=== PATIENT | male | born 1985 | race Two or more races ===

== ENCOUNTER 2016-04-18 12:49 | Emergency (ER) | payer OTHER ==
[2016-04-18 12:54] VITALS: BP 145/86; PULSE 88; TEMP 97.7; BMI 29.5
--- NOTE | 2016-04-18 14:31 | PDOC ---
History of Present Illness - General Chief Complaint: Eye Problem Stated Complaint: RT EYE PAIN/ SWOLLEN Time Seen by Provider: 04/18/16 12:58 History Source: Patient Exam Limitations: No Limitations - History of Present Illness Initial Comments: 04/18/16 14:34 30 yr male with right eye irritation, photophobia for 4 days. Pt states he was cleaning a grilla t work when a piece of metal from the brush got into his right eye. Pt went to another ER and "something" was removed from the eye and pt was placed on cipro eye drops. Pt continues to have photophobia, feeling of FB sensation. no vision change, pt does not wear contacts or glasses. Severity: mild Past History - Past Medical History Allergies/Adverse Reactions: Allergies Allergy/AdvReac Type Severity Reaction Status Date / Time No Known Allergies Allergy Verified 04/18/16 12:54 Home Medications: Ambulatory Orders Cyclobenzaprine HCl [Flexeril -] 10 mg PO TID #9 tablet 11/27/15 Ibuprofen [Motrin -] 800 mg PO Q6H #30 tablet 11/27/15 Oxycodone HCl/Acetaminophen [Percocet 5-325 mg Tablet] 1 tab PO Q4H #15 tablet MDD 4 11/27/15 Cyclopentolate 1% Eye Drops [Cyclogyl 1% Eye Drops -] 1 drop OD BID #1 bottle Asthma: Yes Hypercholesterolemia: Yes - Surgical History Other Surgical History: 04/18/16 14:42 none - Psycho/Social/Smoking Cessation Hx Anxiety: No Suicidal Ideation: No Smoking History: Current every day smoker Number of Cigarettes Smoked Daily: 4 Information on smoking cessation initiated: No Hx Alcohol Use: Yes (SOCIAL) Drug/Substance Use Hx: No Substance Use Type: None Review of Systems - Review of Systems Able to Perform ROS?: Yes Is the patient limited Estonian proficient: No Constitutional: No: Symptoms Reported HEENTM: Yes: See HPI, Tearing Respiratory: No: See HPI Cardiac (ROS): No: See HPI *Physical Exam - Vital Signs Last Vital Signs Temp Pulse Resp BP Pulse Ox 97.7 F 88 20 145/86 98 04/18/16 12:50 04/18/16 12:50 04/18/16 12:50 04/18/16 12:50 04/18/16 12:50 - Physical Exam General Appearance: Yes: Nourished, Appropriately Dressed HEENT: positive: EOMI, MARQUITA, Other (right eye ) Respiratory/Chest: positive: Lungs Clear, Normal Breath Sounds Cardiovascular: positive: Regular Rhythm, Regular Rate Musculoskeletal: positive: Normal Inspection Extremity: positive: Normal Capillary Refill, Normal Inspection, Normal Range of Motion Integumentary: positive: Normal Color, Dry, Warm Neurologic: positive: Fully Oriented, Alert, Normal Mood/Affect, Normal Response , Motor Strength 5/5 Procedures - Eye Procedure Alcaine Drops Administered: Yes (2) Eye Irrigated w/ Saline(Daniel Lens): Yes (100cc) Antibiotic Oinment/Drps Admin: right eye (erythromycin) Progress: 04/18/16 14:58 positive rust ring right cornea, no fb seen ED Treatment Course - Consult/PCP Time Called: 14:30 Case discussed with consulting physician: Lila Hurtado Consult Reason/Comments: case discussed with optho Dr.Prevor Neville Medical Decision Making - Medical Decision Making 04/18/16 14:45 cc: right eye tearing, photophobia , sensitive case discussed with optho health management consultant Dr.Prevor Neville will continue cipro, add erythromycin ointment, add cyclogel BID and see her in [facility] office wednesday. will irrigate with 100cc normal saline 04/18/16 14:58 discussed with patient the plan of care all questions asked and answered before discharge, understands the plan as well. *DC/Admit/Observation/Transfer Diagnosis at time of Disposition: Cornea abrasion Qualifiers: Encounter type: initial encounter Laterality: right Qualified Code(s): S05.01XA - Injury of conjunctiva and corneal abrasion without foreign body, right eye, initial encounter Corneal rust ring Qualifiers: Laterality: right Qualified Code(s): H18.891 - Other specified disorders of cornea, right eye - Discharge Dispostion Disposition: HOME Condition at time of disposition: Good - Prescriptions Prescriptions: Cyclopentolate 1% Eye Drops [Cyclogyl 1% Eye Drops -] 1 drop OD BID #1 bottle - Referrals Referrals: Lila Hurtado MD [Staff Physician] - - Patient Instructions Additional Instructions: apply the cyclogel eye drops twice a day , this will help with pain but it will blur vision and dialate pupils so do not read or watch tv or drive continue the cipro eye drops you already have add using erythromycin ointment 4x day to lower lid follow with Dr.Prevor Neville on Wednesday morning in the [facility] office at [address] [place] [address] phone number is [phone] I would call in the morning at 830 or 9am and tell them she is expecting to see you in the morning
[2016-04-18] MEDS ORDERED: ERYTHROMYCIN 0.5% OPHTHALMIC OINTMENT 3.5 GM TUBE ONE (14:51)
[2016-04-18] MEDS ORDERED: ERYTHROMYCIN 0.5% OPHTHALMIC OINTMENT 3.5 GM TUBE OD ONE (14:52)
== END 2016-04-18 15:04 | disposition home or self-care (01) ==
LOC: JER 12:49 → JERFT 12:49
DX: S05.01XA Injury of conjunctiva and corneal abrasion without foreign body, right eye, initial encounter (principal); W22.8XXA Striking against or struck by other objects, initial encounter; Y93.G1 Activity, food preparation and clean up; Y92.511 Restaurant or cafe as the place of occurrence of the external cause; Y99.0 Civilian activity done for income or pay
CPT/HCPCS: 99281-25

== ENCOUNTER 2016-07-27 00:01 | Emergency (ER) | payer SELFPAY ==
[2016-07-27 00:18] VITALS: BP 126/95; PULSE 100; TEMP 98.1; BMI 29.5
[2016-07-27] MEDS ORDERED: diphenhydrAMINE HCL 25 MG CAPSULE (FP) PO ONE ×2 (01:13→01:22)
--- NOTE | 2016-07-27 01:13 | PDOC ---
History of Present Illness - General Chief Complaint: Allergic Reaction Stated Complaint: BITE/ALLERGIC REACTION Time Seen by Provider: 07/27/16 00:26 History Source: Patient Exam Limitations: No Limitations - History of Present Illness Initial Comments: 07/27/16 01:08 Patient is a 30-year-old male with no past medical history complaining of a rash to his left forearm and right arm. States he got bitten by mosquitoes and he is allergies to mosquito bites. Now has burning and itching to the area. . PMD: Dr. Lazaro Past medical history: Negative Past social history; negative past family history: Noncontributory ALLERGY: NKDA GENERAL/CONSTITUTIONAL: [No fever or chills. No weakness. No weight change.] HEAD, EYES, EARS, NOSE AND THROAT: [No change in vision. No ear pain or discharge. No sore throat.] CARDIOVASCULAR: [No chest pain or shortness of breath.] RESPIRATORY: [No cough, wheezing, or hemoptysis.] GASTROINTESTINAL: [No nausea, vomiting, diarrhea or constipation. No rectal bleeding.] GENITOURINARY: [No dysuria, frequency, or change in urination.] MUSCULOSKELETAL: [No joint or muscle swelling or pain. No neck or back pain.] SKIN AND BREASTS: (+) Wednesday who will hold 1 Physical 1 rash, (-) easy bruising.] NEUROLOGIC: [No headache, vertigo, loss of consciousness, or loss of sensation.] PSYCHIATRIC: [No depression or anxiety.] ENDOCRINE: [No increased thirst. No abnormal weight change.] HEMATOLOGIC/LYMPHATIC: [No anemia, easy bleeding, or history of blood clots.] ALLERGIC/IMMUNOLOGIC: [No hives or skin allergy. No latex allergy.] GENERAL: [The patient is awake, alert, and fully oriented, in no acute distress. ] HEAD: [Normal with no signs of trauma.] EYES: [Pupils equal, round and reactive to light, extraocular movements intact, sclera anicteric, conjunctiva clear.] ENT: [Ears normal, nares patent, oropharynx clear without exudates. Moist mucous membranes.] NECK: [Normal range of motion, supple without lymphadenopathy, JVD, or masses.] LUNGS: [Breath sounds equal, clear to auscultation bilaterally. No wheezes, and no crackles.] HEART: [Regular rate and rhythm, normal S1 and S2 without murmur, rub.] ABDOMEN: [Soft, nontender, normoactive bowel sounds. No guarding, no rebound. No masses.] EXTREMITIES: [Normal range of motion, no edema. No clubbing or cyanosis. No cords, erythema, or tenderness.] NEUROLOGICAL: [Cranial nerves II through XII grossly intact. Normal speech, normal gait.] PSYCH: [Normal mood, normal affect.] SKIN: [(+) well cirucmscribed area of erythema, non tender, normal turgor, Past History - Past Medical History Allergies/Adverse Reactions: Allergies Allergy/AdvReac Type Severity Reaction Status Date / Time No Known Allergies Allergy Verified 07/27/16 00:16 Home Medications: Ambulatory Orders Cephalexin [Keflex] 500 mg PO TID #5 capsule 07/27/16 Asthma: Yes Hypercholesterolemia: Yes - Psycho/Social/Smoking Cessation Hx Anxiety: No Suicidal Ideation: No Smoking History: Smoker current status UNK Number of Cigarettes Smoked Daily: 4 Hx Alcohol Use: Yes (SOCIAL) Drug/Substance Use Hx: No Substance Use Type: Marijuana *Physical Exam - Vital Signs Last Vital Signs Temp Pulse Resp BP Pulse Ox 98.1 F 100 H 20 126/95 100 07/27/16 00:17 07/27/16 00:17 07/27/16 00:17 07/27/16 00:17 07/27/16 00:17 Medical Decision Making - Medical Decision Making 07/27/16 01:17 Patient is a 30-year-old male with no past medical history complaining of a rash to his left forearm and right arm consistent with insect bite. will give Benadryl 50mg po, r/o cellulitis will consider keflex Rx sent to pharmacy if the area worses I discussed the physical exam findings, ancillary test results and final diagnoses with the patient. I answered all of the patient's questions. The patient was satisfied with the care received and felt comfortable with the discharge plan and treatment plan. The Patient agrees to follow up with the primary care physician within 24-72 hours. *DC/Admit/Observation/Transfer Diagnosis at time of Disposition: Insect bite Qualifiers: Encounter type: initial encounter Qualified Code(s): W57.XXXA - Bitten or stung by nonvenomous insect and other nonvenomous arthropods, initial encounter - Discharge Dispostion Disposition: HOME - Prescriptions Prescriptions: Cephalexin [Keflex] 500 mg PO TID #5 capsule - Referrals Referrals: Ramiro Lazaro MD [Primary Care Provider] - - Patient Instructions Printed Discharge Instructions: DI for Insect Bites and Stings Additional Instructions: Your Discharge Instructions: You must call primary care physician within 24 hours to arrange follow-up. Return to the Emergency Department with any new, persistent or worsening symptoms, for fever, chills, SOB, dizziness or any other concerning changes that may occur. Return in 2 days for wound check.
== END 2016-07-27 01:26 | disposition home or self-care (01) ==
LOC: JER 00:01
DX: S50.862A Insect bite (nonvenomous) of left forearm, initial encounter (principal); S40.861A Insect bite (nonvenomous) of right upper arm, initial encounter; L08.9 Local infection of the skin and subcutaneous tissue, unspecified; W57.XXXA Bitten or stung by nonvenomous insect and other nonvenomous arthropods, initial encounter; Y93.89 Activity, other specified; Y92.89 Other specified places as the place of occurrence of the external cause; Y99.8 Other external cause status
CPT/HCPCS: 99281-25

== ENCOUNTER 2016-11-22 10:23 | Emergency (ER) | payer SELFPAY ==
[2016-11-22 10:30] VITALS: BP 129/85; PULSE 91; TEMP 98.3; BMI 29.2
--- NOTE | 2016-11-22 10:55 | PDOC ---
History of Present Illness - General History Source: Patient Exam Limitations: No Limitations - History of Present Illness Initial Comments: 11/22/16 12:15 The patient is a 31 year old male with past medical history of asthma who presents to the ED with complaints of fever, chills and diffuse abdominal pain that began 4 days ago. The patient states that his symptoms are accompanied with nausea, mustard colored diarrhea and dark emesis. He states that he has been unable to hold down any food or fluids. He denies any sick contacts, cough , SOB, chest pain, urinary symptoms. PCP: Ramiro Lazaro <Alma Rosa Kumar - Last Filed: 11/22/16 13:14> <Faustino Goodson - Last Filed: 11/22/16 14:18> - General Chief Complaint: Pain, Acute Stated Complaint: NAUSEA/VOMITING Time Seen by Provider: 11/22/16 10:55 Past History <Alma Rosa Kumar - Last Filed: 11/22/16 13:14> - Past Medical History Asthma: Yes Hypercholesterolemia: Yes - Psycho/Social/Smoking Cessation Hx Anxiety: No Suicidal Ideation: No Smoking History: Smoker current status UNK Have you smoked in the past 12 months: Yes Number of Cigarettes Smoked Daily: 4 Information on smoking cessation initiated: Yes Hx Alcohol Use: No Drug/Substance Use Hx: No Substance Use Type: Marijuana <Faustino Goodson - Last Filed: 11/22/16 14:18> - Past Medical History Allergies/Adverse Reactions: Allergies Allergy/AdvReac Type Severity Reaction Status Date / Time No Known Allergies Allergy Verified 11/22/16 10:25 Home Medications: Ambulatory Orders Albuterol Sulfate Inhaler - [Ventolin Hfa Inhaler -] 1 - 2 inh PO QID 11/22/16 Review of Systems - Review of Systems Able to Perform ROS?: Yes Comments:: 11/22/16 12:16 GENERAL/CONSTITUTIONAL: Present: fever, chills, lack of appetite No weakness. HEAD, EYES, EARS, NOSE AND THROAT: No change in vision. No ear pain or discharge. No sore throat. CARDIOVASCULAR: No chest pain or shortness of breath. RESPIRATORY: No cough, wheezing, or hemoptysis. GASTROINTESTINAL: Present: nausea, vomiting, diarrhea, abdominal pain No constipation. GENITOURINARY: No dysuria, frequency, or change in urination. MUSCULOSKELETAL: No joint or muscle swelling or pain. No neck or back pain. SKIN: No rash NEUROLOGIC: No headache, vertigo, loss of consciousness, or change in strength/ sensation. ENDOCRINE: No increased thirst. No abnormal weight change. HEMATOLOGIC/LYMPHATIC: No anemia, easy bleeding, or history of blood clots. ALLERGIC/IMMUNOLOGIC: No hives or skin allergy. All Other Systems: Reviewed and Negative <Alma Rosa Kumar - Last Filed: 11/22/16 13:14> *Physical Exam - Vital Signs Last Vital Signs Temp Pulse Resp BP Pulse Ox 98.3 F 91 H 18 129/85 100 11/22/16 10:26 11/22/16 10:26 11/22/16 10:26 11/22/16 10:11/22/16 10:26 - Physical Exam Comments: 11/22/16 12:23 GENERAL: Awake, alert, and fully oriented, in no acute distress HEAD: No signs of trauma EYES: PERRLA, EOMI, sclera anicteric, conjunctiva clear ENT: Auricles normal inspection, hearing grossly normal, nares patent, oropharynx clear without exudates.(+) Dry mucosa NECK: Normal ROM, supple, no lymphadenopathy, JVD, or masses LUNGS: Breath sounds equal, clear to auscultation bilaterally. No wheezes, and no crackles HEART: (+) tachycardic, normal S1 and S2, no murmurs, rubs or gallops ABDOMEN: Soft, nontender, normoactive bowel sounds. No guarding, no rebound. No masses EXTREMITIES: Normal range of motion, no edema. No clubbing or cyanosis. No cords, erythema, or tenderness NEUROLOGICAL: Cranial nerves II through XII grossly intact. Normal speech, normal gait SKIN: Warm, Dry, normal turgor, no rashes or lesions noted. <Alma Rosa Kumar - Last Filed: 11/22/16 13:14> - Vital Signs Last Vital Signs Temp Pulse Resp BP Pulse Ox 98.3 F 91 H 18 129/85 100 11/22/16 10:26 11/22/16 10:26 11/22/16 10:26 11/22/16 10:26 11/22/16 10:26 <Faustino Goodson - Last Filed: 11/22/16 14:18> ED Treatment Course - LABORATORY CBC & Chemistry Diagram: 11/22/16 12:00 11/22/16 12:00 - RADIOLOGY Radiograph Interpretation: 11/22/16 13:14 Abdominal/pelvic CT as reviewed by Dr. Puckett reports no acute pathology. <Alma Rosa Kumar - Last Filed: 11/22/16 13:14> - LABORATORY CBC & Chemistry Diagram: 11/22/16 12:00 11/22/16 12:00 <Faustino Goodson - Last Filed: 11/22/16 14:18> Medical Decision Making - Medical Decision Making 11/22/16 13:14 <Alma Rosa Kumar - Last Filed: 11/22/16 13:14> - Medical Decision Making 11/22/16 14:11 Patient wants his IV out and he wants to eat something heavy..... neither of which is a good idea. I told him he could stay and wait for the labs and have more fluids, he is declining and wants to go now..... he wants to sign out ama and he understands the risks. <Faustino Goodson - Last Filed: 11/22/16 14:18> *DC/Admit/Observation/Transfer - Attestations Scribe Attestion: 11/22/16 12:24 Documentation prepared by Alma Rosa Kumar, acting as medical accountant for Faustino Goodson DO. <StacyAlma Rosa - Last Filed: 11/22/16 13:14> - Discharge Dispostion Admit: No - Attestations Physician Attestion: 11/22/16 10:55 I, Dr. Faustino Goodson, attest that this document has been prepared under my direction and personally reviewed by me in its entirety. I further attest, that it accurately reflects all work, treatment, procedures and medical decision -making performed by me. <Faustino Goodson - Last Filed: 11/22/16 14:18> Diagnosis at time of Disposition: Viral gastroenteritis - Discharge Dispostion Disposition: AGAINST MEDICAL ADVICE Condition at time of disposition: Improved - Referrals Referrals: Ramiro Lazaro MD [Primary Care Provider] - - Patient Instructions Printed Discharge Instructions: DI for Dehydration -- Adult, DI for Viral Gastroenteritis -- Adult Additional Instructions: Blaise- I am sorry that you do not feel well and you have been sick the past four or five days. Since you are leaving against medical advice and you want to eat something heavy rather than stay on clear liquids for 24 hours....... I really can't help you any further. I will not be able to give you a note for work or a prescription. If you get worse, please return. I do actually hope you feel better soon. Best- Dr. Faustino Goodson
[2016-11-22] MEDS ORDERED: SODIUM CHLORIDE 3,000 ML IV STA (11:01)
[2016-11-22] MEDS ORDERED: morphine CARPU-JECT 2 MG/1 ML DISP.SYRIN IVPUSH ONE (11:01)
[2016-11-22] MEDS ORDERED: ONDANSETRON 4 MG/2 ML VIAL IVPUSH ONE (11:01)
[2016-11-22] MEDS ORDERED: morphine CARPU-JECT 2 MG/1 ML DISP.SYRIN ONE (11:52)
[2016-11-22] MEDS ORDERED: ONDANSETRON 4 MG/2 ML VIAL ONE (11:54)
[2016-11-22 12:10] LABS: MCH 30.9 pg (25.7-33.7); MCHC 34.1 g/dl (32.0-35.9); MEAN CELL VOLUME 90.6 fl (80-96); MEAN PLT VOLUME 8.8 fl (7.5-11.1); PLATELET COUNT 228 K/MM3 (134-434); RDW 12.9 % (11.9-15.9); WHITE BLOOD COUNT 4.9 K/mm3 (4.0-10.0)
[2016-11-22 12:22] LABS: INR 1.12 (0.82-1.09); PROTHROMBIN TIME (PATIENT) 12.3 SEC (9.98-11.88)
[2016-11-22 12:32] LABS: ALBUMIN 3.5 g/dl (3.4-5.0); ALK PHOS 60 U/L (45-117); ANION GAP 9 (8-16); BILIRUBIN,TOTAL 0.5 mg/dL (0.2-1.0); CALCIUM 9.1 mg/dL (8.5-10.1); CO2 27 mmol/L (21-32); GLUCOSE,RANDOM 98 mg/dL (74-106); SGOT/AST 31 U/L (15-37); SGPT/ALT 22 U/L (12-78); TOT PROT 7.1 g/dl (6.4-8.2)
[2016-11-22 12:42] LABS: PLATELET ESTIMATE ADEQUATE; REACTIVE LYMPHOCYTES 2 % (0-80); TOTAL CELLS COUNTED 100
== END 2016-11-22 14:27 ==
LOC: JER 10:23
CPT/HCPCS: 36415; 76705-TC; 80053; 83605; 83690; 85025; 85610; 99284-25

== ENCOUNTER 2017-10-30 18:23 | Emergency (ER) | payer SELFPAY ==
[2017-10-30 18:37] VITALS: BP 143/80; PULSE 101; TEMP 98; BMI 29.7
--- NOTE | 2017-10-30 18:50 | PDOC ---
History of Present Illness - General Chief Complaint: Laceration Stated Complaint: LACERATION Time Seen by Provider: 10/30/17 18:42 History Source: Patient Exam Limitations: No Limitations - History of Present Illness Initial Comments: 10/30/17 18:52 32 yr male with laceration above right eyebrow at work a pot cover fell hit his eyebrow. no LOC no dizzyness tetanus is UTD Past History - Past Medical History Allergies/Adverse Reactions: Allergies Allergy/AdvReac Type Severity Reaction Status Date / Time No Known Allergies Allergy Verified 10/30/17 18:37 Home Medications: Ambulatory Orders NK [No Known Home Medication] 10/30/17 Asthma: Yes COPD: No Hypercholesterolemia: Yes - Suicide/Smoking/Psychosocial Hx Smoking History: Current every day smoker Have you smoked in the past 12 months: Yes Number of Cigarettes Smoked Daily: 6 Information on smoking cessation initiated: No Hx Alcohol Use: Yes (SOCIAL) Drug/Substance Use Hx: No Substance Use Type: Marijuana Review of Systems - Review of Systems Able to Perform ROS?: Yes Is the patient limited Bulgarian proficient: No Constitutional: No: Symptoms Reported HEENTM: No: Symptoms Reported Respiratory: No: Symptoms reported Cardiac (ROS): No: Symptoms Reported ABD/GI: No: Symptoms Reported : No: Symptoms Reported Integumentary: Yes: Symptoms Reported *Physical Exam - Vital Signs Last Vital Signs Temp Pulse Resp BP Pulse Ox 98 F 101 H 20 143/80 99 10/30/17 18:34 10/30/17 18:34 10/30/17 18:34 10/30/17 18:34 10/30/17 18:34 - Physical Exam General Appearance: Yes: Nourished, Appropriately Dressed HEENT: positive: EOMI, MARQUITA Extremity: positive: Normal Capillary Refill, Normal Inspection, Normal Range of Motion Integumentary: positive: Normal Color, Warm, Other (right eyebrow with 1cm vertical laceration threw the middle of the eyebrow, no active bleeding now) Neurologic: positive: Fully Oriented, Alert, Normal Mood/Affect, Normal Response , Motor Strength 5/5 Procedures - Laceration/Wound Repair Face Wound Length: to 2.5 cm Wound Explored: clean Wound's Depth, Shape: linear Irrigated w/ Saline: Yes Betadine Prep: Yes Wound Repaired With: Dermabond Progress: 10/30/17 18:55 tolerated well, pt agrees with plan for closure Medical Decision Making - Medical Decision Making 10/30/17 18:57 cc: laceration to the eyebrow no bleeding, EOMI wound cleaned irrigated well no active bleeding closed with dermabond glue pt agrees with treatment and plan of care dc inst discussed *DC/Admit/Observation/Transfer Diagnosis at time of Disposition: Laceration - Discharge Dispostion Disposition: HOME Condition at time of disposition: Good - Referrals - Patient Instructions Printed Discharge Instructions: DI for Laceration Repair With Dermabond Additional Instructions: keep dry for 12hrs briefly able to wet but do not soak do not pick at the glue it will peel off on own - Post Discharge Activity
== END 2017-10-30 19:00 | disposition home or self-care (01) ==
LOC: JERFT 18:23
PROC: 0HQ1XZZ Repair Face Skin, External Approach (ICD-10-PCS; principal; 2017-10-30)
DX: S01.111A Laceration without foreign body of right eyelid and periocular area, initial encounter (principal); W20.8XXA Other cause of strike by thrown, projected or falling object, initial encounter; Y93.G3 Activity, cooking and baking; Y92.511 Restaurant or cafe as the place of occurrence of the external cause; Y99.0 Civilian activity done for income or pay
CPT/HCPCS: 99281-25

== ENCOUNTER 2018-03-28 12:17 | Emergency (ER) | payer OTHER ==
[2018-03-28 12:31] VITALS: TEMP 98.1; BMI 28.3
[2018-03-28] MEDS ORDERED: ACETAMINOPHEN 1000 MG/100 ML VIAL (NON FORMULARY) IVPB ONE (13:01)
--- NOTE | 2018-03-28 13:15 | PDOC ---
History of Present Illness - History of Present Illness Initial Comments: 03/28/18 13:27 The patient is a 32 year old male with a significant past medical history of HLD and asthma who presents to the ED with epigastric abdominal pain, nausea, and vomiting since last night. Patient states he ate pork around 11:00 pm last night and developed nausea and epigastric cramping around 4:00 am and took an excedrin with no relief. Patient reports one episode of non bilious non bloody vomiting around 10:00 am this morning while at work and two more episodes later on in the day. He also reports one small episode of diarrhea with loose stool and a diffuse global onset headache associated with present symptoms. Patient reports similar symptoms last year when he ate a similar type of pork. Other family members who at the pork do not have similar sxs. Currently feels better, drinking water and states he is hungry. Denies fever or chills, bodyaches, runny nose, stiff neck, cough. Denies chest pain or shortness of breath. Denies dysuria or change in urinary output. Denies hematochezia. Denies any other symptoms. <Evaristo Adams - Last Filed: 03/28/18 13:27> - General History Source: Patient Exam Limitations: No Limitations - History of Present Illness Initial Comments: 03/28/18 13:45 CBC, CMP, Lipase, UA, UCx. were sent to r/o gastroenteritis, pancreatitis and UTI respectively. Timing/Duration: 24 hours Severity: mild Modifying Factors: improves with: rest Associated Symptoms: reports: headaches. denies: chest pain, cough, loss of appetite, shortness of breath Aspirin Received prior to arrival: Yes: no aspirin today Beta Ramón Contraindications(Core Measure): Yes: Not Prescribed <Rian Cedeno - Last Filed: 03/28/18 15:19> - General Chief Complaint: Nausea/Vomiting Stated Complaint: NAUSEA/VOMITING Time Seen by Provider: 03/28/18 12:49 Past History <Evaristo Adams - Last Filed: 03/28/18 13:27> - Past Medical History Asthma: Yes Cardiac Disorders: No Hx Myocardial Infarction: No COPD: No Diabetes: No Hypercholesterolemia: Yes - Surgical History Abdominal Surgery: No Appendectomy: No Cardiac Surgery: No Cholecystectomy: No Gastric Stapling: No GI Surgery: No Lung Surgery: No Neurologic Surgery: No Orthopedic Surgery: Yes (Right shoulder surgery 2016) - Suicide/Smoking/Psychosocial Hx Smoking History: Current every day smoker Have you smoked in the past 12 months: Yes Number of Cigarettes Smoked Daily: 2 Information on smoking cessation initiated: No Hx Alcohol Use: No Drug/Substance Use Hx: Yes Substance Use Type: Marijuana <Rian Cedeno - Last Filed: 03/28/18 15:19> - Past Medical History Allergies/Adverse Reactions: Allergies Allergy/AdvReac Type Severity Reaction Status Date / Time No Known Allergies Allergy Verified 03/28/18 13:34 Home Medications: Ambulatory Orders NK [No Known Home Medication] 10/30/17 Review of Systems - Review of Systems Able to Perform ROS?: Yes Constitutional: Yes: Fever. No: Chills, Loss of Appetite, Weakness HEENTM: No: Eye Pain, Difficulty Swallowing Respiratory: No: Cough, Shortness of Breath, Wheezing, Productive cough Cardiac (ROS): No: Chest Pain, Edema, Palpitations ABD/GI: Yes: Diarrhea, Nausea, Poor Fluid Intake, Vomiting, Indigestion. No: Blood Streaked Bowels, Poor Appetite : No: Burning, Dysuria, Discharge, Frequency, Flank Pain, Hematuria Musculoskeletal: Yes: Muscle Pain. No: Symptoms Reported Integumentary: No: Symptoms Reported Neurological: Yes: Headache. No: Paresthesia, Seizure, Tingling, Tremors <Rian Cedeno - Last Filed: 03/28/18 15:19> *Physical Exam - Vital Signs Last Vital Signs Temp Pulse Resp BP Pulse Ox 98.1 F 89 18 116/77 98 03/28/18 12:29 03/28/18 12:29 03/28/18 12:29 03/28/18 12:29 03/28/18 12:29 <NasseEvaristo herrera - Last Filed: 03/28/18 13:27> - Vital Signs Last Vital Signs Temp Pulse Resp BP Pulse Ox 98.1 F 89 18 116/77 98 03/28/18 12:29 03/28/18 12:29 03/28/18 12:29 03/28/18 12:29 03/28/18 12:29 - Physical Exam General Appearance: Yes: Nourished, Appropriately Dressed, Apparent Distress, Mild Distress HEENT: positive: Normal ENT Inspection, Symmetrical. negative: Pharyngeal Erythema, Tonsillar Exudate, Tonsillar Erythema, Nasal Congestion Neck: positive: Supple. negative: Lymphadenopathy (R), Lymphadenopathy (L) Respiratory/Chest: positive: Lungs Clear, Normal Breath Sounds. negative: Chest Tender, Respiratory Distress, Accessory Muscle Use, Crackles, Wheezing Cardiovascular: positive: Regular Rhythm, Regular Rate, S1, S2. negative: Edema , JVD, Murmur Vascular Pulses: Dorsalis-Pedis (R): 2+, Doralis-Pedis (L): 2+ Gastrointestinal/Abdominal: positive: Normal Bowel Sounds, Tender, Soft, Tenderness (epigastric). negative: Organomegaly, Distended Rectal Exam: positive: deferred Musculoskeletal: positive: Normal Inspection. negative: CVA Tenderness, CVA Tenderness (R), CVA Tenderness (L), Vertebral Tenderness Extremity: positive: Normal Capillary Refill, Normal Range of Motion. negative : Tender Neurologic: positive: Fully Oriented, Alert, Normal Mood/Affect, Normal Response , Motor Strength 5/5, Respond to painful stimul, Responsive <Rian Cedeno - Last Filed: 03/28/18 15:19> Moderate Sedation - Procedure Monitoring Vital Signs: Procedure Monitoring Vital Signs Temperature 98.1 F 03/28/18 12:29 Pulse Rate 89 03/28/18 12:29 Respiratory Rate 18 03/28/18 12:29 Blood Pressure 116/77 03/28/18 12:29 O2 Sat by Pulse Oximetry (%) 98 03/28/18 12:29 <Evaristo Adams - Last Filed: 03/28/18 13:27> - Procedure Monitoring Vital Signs: Procedure Monitoring Vital Signs Temperature 98.1 F 03/28/18 12:29 Pulse Rate 89 03/28/18 12:29 Respiratory Rate 18 03/28/18 12:29 Blood Pressure 116/77 03/28/18 12:29 O2 Sat by Pulse Oximetry (%) 98 03/28/18 12:29 <Rian Cedeno - Last Filed: 03/28/18 15:19> ED Treatment Course - LABORATORY CBC & Chemistry Diagram: 03/28/18 13:40 03/28/18 13:40 <Rian Cedeno - Last Filed: 03/28/18 15:19> *DC/Admit/Observation/Transfer <Evaristo Adams - Last Filed: 03/28/18 13:27> <Rian Cedeno - Last Filed: 03/28/18 15:19> Diagnosis at time of Disposition: Vomiting, Diarrhea, Abdominal pain - Discharge Dispostion Disposition: HOME Condition at time of disposition: Improved - Patient Instructions Printed Discharge Instructions: DI for Vomiting -- Adult Additional Instructions: Follow up with your primary doctor within 2-3 days Drink plenty of fluids and stay hydrated Return to the emergency department if you have any new, worsening, or concerning symptoms
[2018-03-28] MEDS ORDERED: ONDANSETRON *ODT* 4 MG TABLET SL ONE (13:24)
[2018-03-28 13:27] LABS: URINE APPEARANCE CLEAR; URINE BILIRUBIN NEGATIVE (<2.0 mg/dL); URINE COLOR YELLOW; URINE GLUCOSE (UA) NEGATIVE (NEGATIVE); URINE KETONE TRACE (NEGATIVE); URINE LEUK ESTERASE NEGATIVE (NEGATIVE); URINE NITRITE NEGATIVE (NEGATIVE); URINE PROTEIN NEGATIVE (NEGATIVE)
[2018-03-28] MEDS ORDERED: ACETAMINOPHEN INJECTION 100 ML IVPB ONE (13:38)
[2018-03-28] MEDS ORDERED: ONDANSETRON *ODT* 4 MG TABLET ONE (13:45)
--- NOTE | 2018-03-28 13:45 | PDOC ---
Attending Attestation - Resident Resident Name: Rian Cedeno - ED Attending Attestation I have performed the following: I have examined & evaluated the patient, The case was reviewed & discussed with the resident, I agree w/resident's findings & plan, Exceptions are as noted - HPI HPI: 03/28/18 13:42 The patient is a 32 year old male with a significant past medical history of HLD and asthma who presents to the ED with epigastric abdominal pain, nausea, and vomiting since last night. Patient states he ate pork around 11:00 pm last night and developed nausea and epigastric cramping around 4:00 am and took an excedrin with no relief. Patient reports one episode of non bilious non bloody vomiting around 10:00 am this morning while at work and two more episodes later on in the day. He also reports one small episode of diarrhea with loose stool and a diffuse global onset headache associated with present symptoms. Patient reports similar symptoms last year when he ate a similar type of pork. Other family members who at the pork do not have similar sxs. Currently feels better, drinking water and states he is hungry. Denies fever or chills, bodyaches, runny nose, stiff neck, cough. Denies chest pain or shortness of breath. Denies dysuria or change in urinary output. Denies hematochezia. Denies any other symptoms. No recent travel. - Physicial Exam PE: 03/28/18 13:42 GENERAL: Awake, alert, and fully oriented, in no acute distress. Well appearing , drinking water. EYES: PERRLA, EOMI, sclera anicteric, conjunctiva clear ENT: Oropharynx clear without exudates. Moist mucosa NECK: Normal ROM, supple, no lymphadenopathy, JVD, or masses LUNGS: Breath sounds equal, clear to auscultation bilaterally. No wheezes, and no crackles HEART: Regular rate and rhythm, normal S1 and S2, no murmurs, rubs or gallops ABDOMEN: Soft, nontender, normoactive bowel sounds. No guarding, no rebound. No masses. No CVAT. EXTREMITIES: Normal range of motion, no edema. No cords, erythema, or tenderness NEUROLOGICAL: Normal speech, cranial nerves intact, equal strength and sensation b/l SKIN: Warm, Dry, normal turgor, no rashes or lesions noted. - Medical Decision Making 03/28/18 13:43 32yo M presents to the ED with resolved epigastric pain, NBNB emesis, 1 episode of loose stool. Vitals wnl. Exam benign. DDx includes but not limited to gastritis vs gastroenteritis vs pancreatitis vs colitis. Plan: -labs -UA -zofran odt -pt refuses IV/fluids as he feels better and is tolerating PO -reassess 03/28/18 15:06 Labs wnl UA wnl Tolerating PO Feels much better, requests DC home I discussed the physical exam findings, ancillary test results and final diagnoses with the patient. I answered all of the patient's questions. The patient was satisfied with the care received and felt comfortable with the discharge plan and treatment plan. The patient will call their primary care physician within 24 hours to arrange follow-up and will return to the Emergency Department with any new, persistent or worsening symptoms. *DC/Admit/Observation/Transfer Diagnosis at time of Disposition: Vomiting, Diarrhea, Abdominal pain - Discharge Dispostion Disposition: HOME Condition at time of disposition: Improved Decision to Admit order: No - Referrals - Patient Instructions Printed Discharge Instructions: DI for Vomiting -- Adult Additional Instructions: Follow up with your primary doctor within 2-3 days Drink plenty of fluids and stay hydrated Return to the emergency department if you have any new, worsening, or concerning symptoms - Post Discharge Activity - Attestations Physician Attestion: 03/28/18 15:05 I, Dr. Evaristo Adams MD, attest that this document has been prepared under my direction and personally reviewed by me in its entirety. I further attest, that it accurately reflects all work, treatment, procedures and medical decision -making performed by me.
[2018-03-28 13:49] LABS: URINE BACTERIA RARE /hpf (NONE SEEN); URINE MUCUS RARE
[2018-03-28 13:56] LABS: BASO % 0.2 % (0-2.0); EOS % 0.9 % (0-4.5); HEMATOCRIT 44.5 % (35.4-49); HEMOGLOBIN 15.8 GM/dL (11.7-16.9); LYMPH % 30.3 % (8-40); MCH 32.4 pg (25.7-33.7); MCHC 35.5 g/dl (32.0-35.9); MEAN CELL VOLUME 91.3 fl (80-96); MEAN PLT VOLUME 8.9 fl (7.5-11.1); MONO % 8.8 % (3.8-10.2); NEUT % 59.8 % (42.8-82.8); PLATELET COUNT 231 K/MM3 (134-434); RBC 4.88 M/mm3 (4.00-5.60); RDW 13.2 % (11.9-15.9); WHITE BLOOD COUNT 4.3 K/mm3 (4.0-10.0)
[2018-03-28 14:23] LABS: ALBUMIN 4.1 g/dl (3.4-5.0); ALK PHOS 84 U/L (45-117); ANION GAP 5 MMOL/L (8-16); BILIRUBIN,TOTAL 0.9 mg/dL (0.2-1); BLOOD UREA NITROGEN 9 mg/dL (7-18); CHLORIDE 108 mmol/L (98-107); CO2 26 mmol/L (21-32); CREATININE 0.8 mg/dL (0.55-1.3); GLUCOSE,RANDOM 79 mg/dL (74-106); LIPASE 124 U/L (73-393); POTASSIUM 4.2 mmol/L (3.5-5.1); SGOT/AST 27 U/L (15-37); SGPT/ALT 25 U/L (13-61); SODIUM 138 mmol/L (136-145); TOT PROT 7.2 g/dl (6.4-8.2)
[2018-03-28 15:29] VITALS: BP 129/60; PULSE 70
== END 2018-03-28 15:28 | disposition home or self-care (01) ==
LOC: JER 12:17
PROC: 3E033NZ Introduction of Analgesics, Hypnotics, Sedatives into Peripheral Vein, Percutaneous Approach (ICD-10-PCS; principal; 2018-03-28)
DX: R11.2 Nausea with vomiting, unspecified (principal); E78.5 Hyperlipidemia, unspecified; Z87.09 Personal history of other diseases of the respiratory system
CPT/HCPCS: 36415; 80053; 81003; 81015; 83690; 85025; 87086; 99282-25; J0131; Q0162